=== PATIENT | male | born 1970 | race Caucasian/White ===

== ENCOUNTER → 2017-12-26 14:01 | Outpatient (CLI) | payer MEDICAID, SELFPAY ==
[2017-12-26 15:43] LABS: Absolute Lymphocyte Count 0.77 X10^3/ul (0.83-4.51); Absolute Neutrophil Count 3.5 X10^3/uL (2.0-7.7); Basophil# 0.03 X10^3/uL; Basophil% 0.6 % (0-1); Eosinophil# 0.07 X10^3/uL; Eosinophils% 1.4 % (0-5); Hemoglobin 10.3 g/dl (13.0-16.5); Lymphocyte # 0.77 X10^3/ul (4.0); Lymphocyte % 15.9 % (19-41); Mean Corp Hgb Conc 30.3 g/gl (32-36); Mean Corpuscular Hgb 26.5 pg (27.0-32.0); Mean Corpuscular Volume 87.4 fL (80-94); Mean Platelet Vol. 10.6 fl (6.2-12.0); Monocyte# 0.47 X10^3/uL; Monocyte% 9.7 % (0-10); Neutrophil # 3.47 X10^3/uL (2.7-7.7); Platelet Count 91 K/mm3 (150-450); RBC Distribution Width CV 17.7 % (11.6-14.6); RBC Distribution Width SD 55.9 fl (35.1-43.9); Red Blood Count 3.89 M/mm3 (4.6-6.2); White Blood Count 4.8 K/mm3 (4.4-11.0)
[2017-12-26 15:54] LABS: POSITIVE COUNT NO; POSITIVE DIFFERENTIAL NO; POSITIVE MORPHOLOGY NO
[2017-12-26 16:06] LABS: ALB/GLOB Ratio 0.8 RATIO (0.9-2.4); AST(SGOT) 173 U/L (15-37); Alanine Aminotransfer ALT/SGPT 64 U/L (16-61); Albumin, Serum 3.4 g/dL (3.2-5.0); Alkaline Phosphatase 185 U/L (45-117); Anion Gap 10 (5-15); BUN 8 mg/dL (7-18); BUN/Creat Ratio 9.3 RATIO (10-20); Calcium,Total 8.2 mg/dL (8.5-10.1); Chloride 106 mmol/L (98-107); Creatinine, Serum 0.86 mg/dL (0.70-1.30); EST Glomerular Filtration Rate 100 mL/min (>60); Est Glom Filt Rate - Afr Amer 121 mL/min (>60); Globulin 4.3 g/dL (2.2-4.2); Glucose 163 mg/dL (74-106); Magnesium 1.9 mg/dL (1.6-2.6); Potassium 3.5 mmol/L (3.5-5.1); Protein, Total 7.7 g/dL (6.4-8.2); Sodium Level 143 mmol/L (136-145)
== END ==
PROVIDERS: Family Provider Family Medicine; PCP Family Medicine; Visit Provider Family Medicine
DX: F10.239 Alcohol dependence with withdrawal, unspecified (principal)
CPT/HCPCS: 36415; 80053; 83735; 85025

== ENCOUNTER → 2018-01-27 10:15 | Outpatient (CLI) | payer MEDICAID, SELFPAY ==
[2018-01-27 12:50] LABS: ALB/GLOB Ratio 0.9 RATIO (0.9-2.4); AST(SGOT) 124 U/L (15-37); Alanine Aminotransfer ALT/SGPT 42 U/L (16-61); Albumin, Serum 3.5 g/dL (3.2-5.0); Alkaline Phosphatase 146 U/L (45-117); Anion Gap 8 (5-15); BUN 10 mg/dL (7-18); Calcium,Total 8.7 mg/dL (8.5-10.1); Chloride 110 mmol/L (98-107); Creatinine, Serum 0.91 mg/dL (0.70-1.30); EST Glomerular Filtration Rate 94 mL/min (>60); Est Glom Filt Rate - Afr Amer 114 mL/min (>60); Glucose 123 mg/dL (74-106); Potassium 4.4 mmol/L (3.5-5.1); Protein, Total 7.5 g/dL (6.4-8.2); Sodium Level 142 mmol/L (136-145)
== END ==
PROVIDERS: Family Provider Family Medicine; PCP Family Medicine; Visit Provider Family Medicine
DX: N52.9 Male erectile dysfunction, unspecified (principal); F10.239 Alcohol dependence with withdrawal, unspecified
CPT/HCPCS: 36415; 80053; 84403

== ENCOUNTER 2019-07-28 12:16 | Emergency (ER) | payer MEDICAID, SELFPAY ==
[2019-07-28 12:18] VITALS: BP 156/95; PULSE 80; RESP 16; TEMP 36.6; O2SAT 96; BMI 26.4
--- NOTE | 2019-07-28 13:00 | ED.DCSUM_ITS ---
History of Present Illness Chief Complaint: Substance Abuse Detail of Chief Complaint: Alcohol addiction Informant: Patient, Family - Sister brought him to the emergency department Onset: Days - Patient recently in detox program for alcoholism. He presented to [facility] from [place] for . He began drinking. Context: Sudden Onset Timing: Continuous Quality: Alcoholism Location: Family Current Severity: Mild Maximum Severity: Moderate Worsened by: Anxiety and alcohol Relieved by: Alcohol Associated Symptoms: Anxiety, nausea uneasiness Narrative: This 51-year-old male with no history of alcoholism. He was in a program. He presents to [facility] to attend family . He began drinking. His last drink was earlier this morning. He had several drinks since midnight. He is concerned he will have a withdrawal seizure, which has had in the past if he drives back to [place]. Patient's sister brought him to the emerge from states she will be willing to drive him. Patient was informed that I will be glad to treat him if he has a ride home to prevent him from going through withdrawal and his anxiety. He has no other complaints. Prior similar symptoms: Yes Recent Illness/Hospitalization: Yes - Past Medical History (1) Alcohol addiction Status: Acute Past Medical History - Allergies and Home Meds Allergies/Adverse Reactions: Allergies No Known Allergies Allergy (Verified 07/28/19 12:23) Primary Care Physician: Abdiel Busch MD [STAFF PHYSICIAN] - Prior records reviewed: No - No records from review since he is from [place] Past Medical History: None Surgical History: no surgical history Lives: Spouse/ Significant Other Smoking Status: Current every day smoker Alcohol: Heavy Drugs: None Review of Systems General: Reports: Malaise. Denies: Chills, Fever, Sweats Eyes: Denies: Visual changes - bilaterally, Blurred Vision - bilaterally ENT: Denies: Rhinorrhea, Sore throat Cardiovascular: Denies: Chest pain, Palpitations Respiratory: Denies: Dyspnea, Cough, Sputum Gastrointestinal: Reports: Nausea. Denies: Vomiting, Diarrhea Musculoskeletal: Denies: Myalgias, Arthralgias, Neck pain, Back pain Neurological: Denies: Weakness, Parasthesia, Numbness Psych: Reports: Anxiety Physical Exam Vital Signs/Narrative: Vital Signs Temp Pulse Resp BP Pulse Ox 07/28/19 12:18 97.8 F 80 16 156/95 H 96 Inital Vital Signs reviewed: Yes General: Well nourished, Well developed, No Acute Distress Head: Normocephalic, Atraumatic Eyes: Perrl, EOMI. Negative for: Pale conjunctiva, Scleral icterus ENT: Moist mucous membranes, No rhinorrhea Neck: Supple, Nontender Cardiovascular: Regular rate, Regular rhythm, No murmurs, Normal S1, Normal S2 Respiratory: No distress, CTA bilaterally, Chest nontender Abdomen: Soft, Nontender Neurological: Alert, Oriented x3, Cranial nerves II-XII grossly intact, Normal Strength, Normal Sensation Psychological: - - Patient is anxious. Diagnostic/Tx/Re-eval - Medical Decision Making Sister is willing to drive him home he will receive 7.2 mg of phenobarbital and discharged to custody of his sister. They understand this causes drowsiness and he cannot drive home. ED Disposition - Plan for ED Patient: Disposition: Home or Assisted Living Diagnosis: Anxiety in acute stress reaction, Alcoholism /alcohol abuse Instructions: Anxiety Reaction Referrals: Abdiel Busch MD [STAFF PHYSICIAN] -
[2019-07-28 13:36] VITALS: BP 158/99; PULSE 78; RESP 166; O2SAT 95
== END 2019-07-28 13:41 | disposition home or self-care (01) ==
PROVIDERS: Emergency Provider Emergency Medicine
DX: F41.1 Generalized anxiety disorder (principal); F43.0 Acute stress reaction; F10.20 Alcohol dependence, uncomplicated; Y90.9 Presence of alcohol in blood, level not specified; F17.200 Nicotine dependence, unspecified, uncomplicated
CPT/HCPCS: 99283

== ENCOUNTER 2019-07-29 09:41 | Inpatient (IN) | payer MEDICAID, SELFPAY ==
[2019-07-28 12:18] VITALS: BMI 26.4
[2019-07-29] VITALS (10 sets, daily range): BP systolic 145–166; BP diastolic 88–118; PULSE 72–109; RESP 14–21; TEMP 36.5–37; O2SAT 93–99; BMI 26.4; BMI 26.9
--- NOTE | 2019-07-29 10:29 | ED.RN ---
sister arrived. reports that she did see pt seizing and he stopped breathing that is why she called the squad. reports pt has had confusion and is hard to manage at home while going through detox. sister is at bedside with pt now and dr humphries as well. nurse марина rn updated regarding this info
[2019-07-29] MEDS: LORazepam 2 MG/ML Syringe 1 MG IV (10:50)
[2019-07-29 11:37] LABS: Absolute Neutrophil Count 6.2 X10^3/uL (2.0-7.7); Basophil# 0.04 X10^3/uL; Basophil% 0.6 % (0-1); Eosinophil# 0.04 X10^3/uL; Eosinophils% 0.6 % (0-5); Hematocrit 44.6 % (40-54); Hemoglobin 15.5 g/dL (13.0-16.5); Lymphocyte % 5.5 % (19-41); Mean Corp Hgb Conc 34.8 g/dL (32-36); Mean Corpuscular Hgb 32.2 pg (27.0-32.0); Mean Corpuscular Volume 92.7 fL (80-94); Mean Platelet Vol. 11.4 fl (6.2-12.0); Monocyte# 0.52 X10^3/uL; Monocyte% 7.2 % (0-10); NRBC Flagged by Analyzer 0 % (0-5); Neutrophil % 85.5 % (47-70); POSITIVE COUNT YES; POSITIVE DIFFERENTIAL YES; Platelet Count 76 K/mm3 (150-450); RBC Distribution Width CV 15.9 % (11.6-14.6); RBC Distribution Width SD 54.6 fl (35.1-43.9); Red Blood Count 4.81 M/mm3 (4.6-6.2); White Blood Count 7.2 K/mm3 (4.4-11.0)
[2019-07-29 11:39] LABS: Differential Indicated SCAN CRITERIA MET
[2019-07-29 11:54] LABS: AST(SGOT) 108 U/L (15-37); Alanine Aminotransfer ALT/SGPT 51 U/L (16-61); Albumin, Serum 3.9 g/dL (3.2-5.0); Alkaline Phosphatase 222 U/L (45-117); Anion Gap 12 (5-15); BUN 13 mg/dL (7-18); BUN/Creat Ratio 18.6 RATIO (10-20); Bilirubin, Direct 1.13 mg/dL (0.00-0.30); Calcium,Total 8.9 mg/dL (8.5-10.1); Chloride 104 mmol/L (98-107); EST Glomerular Filtration Rate 126 mL/min (>60); Est Glom Filt Rate - Afr Amer 153 mL/min (>60); Estimated Creatinine Clearance 132.97 ml/min; Glucose 141 mg/dL (74-106); Potassium 3.7 mmol/L (3.5-5.1); Protein, Total 7.9 g/dL (6.4-8.2); Sodium Level 139 mmol/L (136-145)
[2019-07-29 11:56] LABS: Amphetamine Urine VISTA NEGATIVE (<1000 ng/mL); Barbiturate Urine VISTA POSITIVE (< 200 ng/mL); Benzodiazepine Urine VISTA NEGATIVE (< 200 ng/mL); Cocaine Urine VISTA NEGATIVE (< 300 ng/mL); Ecstacy Urine VISTA NEGATIVE (< 500 ng/mL); Methadone Urine VISTA NEGATIVE (< 300 ng/mL); PCP Urine VISTA NEGATIVE (< 25 ng/mL); THC Urine VISTA NEGATIVE (< 50 ng/mL); Vista UDS pH Range 7
[2019-07-29 12:06] LABS: Alcohol, Blood (Medical)-Serum < 3.0 mg/dL
--- NOTE | 2019-07-29 12:52 | ED.VISSUMM ---
- ER Visit Summary Date of Service: 07/29/19 Chief Complaint: Seizures History of Present Illness: The patient is a 49 M with 2 seizures today. His sister found him postictal, but on arrival, he is alert and oriented and able to provide history. He says he has a history of alcohol abuse, withdrawal, and seizures. He is visiting the area from [place] and was binge drinking. His last alcohol use was 3 days ago. He was seen in the ED yesterday. He did not want to be admitted. He was treated with phenobarbital and he plan to go back to [place]. He says he is planning to go back in a few days. He is not currently on Ativan or benzos. Denies any other drug use. Physical Examination: Afebrile and vital signs unremarkable except blood pressure 158/118. Patient is diaphoretic and appears anxious. Otherwise his exam is unremarkable. Test Results: Platelets 76. Total bilirubin 3, direct bilirubin 1.13, alkaline phosphatase 222, AST 108. Emergency Department Course and Treatment: Patient was treated with Ativan and monitored. He had seizure precautions. His laboratory studies reflected his hepatic disease from underlying alcohol use. On reevaluation, patient is stable. He is interested in inpatient care for his alcohol withdrawal. I contacted the hospitalist who will admit to PCU for further care. Treatment Plan: As above Disposition: Admission Impression: 1. Alcohol withdrawal 2. Seizure This note was generated with [employer] dictation software. It may contain incorrect words, spelling, and punctuation that were not noted in review of the chart prior to signing ED Disposition - Plan for ED Patient: Referrals: Care Physician,No Primary [Primary Care Provider] -
--- NOTE | 2019-07-29 13:17 | HP.PCM_ITS ---
History of Present Illness Date of Admission: 07/29/19 Chief Complaint: Seizures, alcohol withdrawal The patient is a 49 year old M with past medical history of alcohol dependence and diabetes. He was admitted through the ED on 07/29/2018 with a complaint of seizures from alcohol withdrawal. Patient states he drinks about a pint of vodka daily and thinks that his last drink may have been yesterday morning. Patient came into the ED yesterday because he felt he was withdrawing from alcohol and so wanted some benzodiazepines to help him go through the withdrawal process. This morning, he was found by his sister having generalized tonic- clonic seizures which lasted for a few minutes. He had a second seizure a few minutes later which also lasted for a few minutes and was associated by postictal drowsiness but had no associated urinary or fecal incontinence. Patient sees he has had seizures like this in the past from alcohol withdrawal. He was therefore brought into the ED by the squad. Patient states he has been through detox in the past but admits that his refusal to fully accept the fact t hat he is in alcohol hinders his ability to fully recover from alcohol dependence. Lives in [facility] and was visiting family in [facility]. In the ED, vitals were significant for elevated blood pressure of 160/102 respiratory rate was 21. Chemistry showed total bilirubin of 3 and direct bilirubin of 1.13 with AST of 108. Urine tox was positive for barbiturates and alcohol level was less than 3. He has been admitted to be managed for seizures due to acute alcohol withdrawal. [] Past Medical History Allergies No Known Allergies Allergy (Verified 07/29/19 09:48) Home Medications: Ambulatory Orders Medication Instructions Recorded Metformin HCl 500 mg PO BID 07/29/19 Multivit with Iron,Minerals 1 ea PO DAILY 07/29/19 [Complete Senior] Sertraline HCl [Zoloft] 50 mg PO DAILY 07/29/19 Surgical History: no surgical history Lives: Spouse/ Significant Other Smoking Status: Current every day smoker Tobacco Use: Non-smoker Alcohol: Heavy Drugs: None - *Family History Maternal History Items: - - unknown as he was adopted Review of Systems Constitutional: Reports: Chills, Malaise, Weakness, Fatigue. Denies: Anorexia, Fever, Night Sweats Eyes: Denies: Blurred vision HEENT: Denies: Head Aches, Sinus Congestion, Sinus Drainage Cardiovascular: Denies: Chest Pain, Chest Pressure, Chest Tightness, Light Headedness, Orthopnea, Palpitations Respiratory: Denies: Cough, Shortness of Breath, Shortness of breath at rest, Shortness of breath upon exertion, Sputum production Gastrointestinal: Denies: Abdominal Pain, Nausea, Vomiting Genitourinary: Denies: Dysuria Musculoskeletal: Denies: Joint Pain, Joint Tenderness Skin: Denies: Rash, Wounds Neurological: Reports: Tremor, Seizures Psychiatric: Denies: Anxiety, Depression, Homicidal Ideations, Suicidal Ideations Hematologic/ Lymphatic: Denies: Easy Bruising, Easy Bleeding VTE Information - Inpt Only VTE Present on Admission: No VTE Pharm Prophylaxis ordered?: Yes - Physical Exam Vitals/I&O's: Vital Signs Temp Pulse Resp BP Pulse Ox 97.7 F L 96 21 H 164/88 H 96 07/29/19 09:45 07/29/19 10:47 07/29/19 10:47 07/29/19 12:58 07/29/19 12:05 Oxygen Delivery Method Room Air Weight: 190 lb Body Mass Index (BMI) 26.4 General: Alert, Oriented x3, Cooperative, No apparent distress HEENT: Atraumatic, PERRLA, EOMI, Normocephalic Oral: Dry Mucosa Neck: Supple, No JVD, Negative Carotid Bruits Lungs: Clear to auscultation, Normal air movement, No rhonchi, No wheeze, No rales Cardiovascular: Regular rate, Regular Rhythm, Normal S1, Normal S2, No murmurs Abdomen: Bowel Sounds Present, Soft, Non Tender, Non-Distended, No Hepato- splenomegaly Extremities: No clubbing, No cyanosis, No edema, Capillary Refill Less than 3 Seconds Skin: No rashes, No breakdown Musculoskeletal: No Tenderness to Palpation of Joints or Extremities Lymphatic: No Cervical, Supraclavicular, or Inguinal Adenopathy Neurological: Cranial nerves II-XII grossly intact, Neuro grossly intact, Motor Exam 5/5 strength throughout, - - tremors of upper extremities Psych/Mental Status: Depressed, Alert and oriented to time, place, person, mood and affect Laboratory Results 07/29/19 11:17: Urine Opiates Screen NEGATIVE, Urine Methadone Screen NEGATIVE, Ur Barbiturates Screen POSITIVE H, Ur Phencyclidine Scrn NEGATIVE, Ur Amphetamines Screen NEGATIVE, U Methamphetamin-MDMA NEGATIVE, U Benzodiazepines Scrn NEGATIVE, Urine Cocaine Screen NEGATIVE, U Cannabinoids Screen NEGATIVE, Ur Drug Screen Comment 07/29/19 11:27: WBC 7.2, RBC 4.81, Hgb 15.5, Hct 44.6, MCV 92.7, MCH 32.2 H, MCHC 34.8, RDW Std Deviation 54.6 H, RDW Coeff of North 15.9 H, Plt Count 76 L, MPV 11.4, Immature Gran % (Auto) 0.600, Neut % (Auto) 85.5 H, Lymph % (Auto) 5.5 L, [place] % (Auto) 7.2, Eos % (Auto) 0.6, Baso % (Auto) 0.6, Absolute Neuts (auto) 6.2, Absolute Lymphs (auto) 0.40 L, Nucleated RBC % 0 07/29/19 11:27: Sodium 139, Potassium 3.7, Chloride 104, Carbon Dioxide 23.0, Anion Gap 12, BUN 13, Creatinine 0.70, Estim Creat Clear Calc 132.97, Est GFR (MDRD) Af Amer 153, Est GFR (MDRD) Non-Af 126, BUN/Creatinine Ratio 18.6, Glucose 141 H, Calcium 8.9, Total Bilirubin 3.00 H, Direct Bilirubin 1.13 H, AST 108 H, ALT 51, Alkaline Phosphatase 222 H, Total Protein 7.9, Albumin 3.9, Globulin 4.0 07/29/19 11:27: Ethyl Alcohol < 3.0 Assessment/Plan All Active Problems Alcohol addiction (Acute) 49-year-old male admitted with seizures due to alcohol withdrawal. 1. Seizures due to alcohol withdrawal * had 2 generalized tonic clonic seizures from alcohol withdrawal * last drink was yesterday morning * urine tox positive for barbiturates * admit to PCU * seizure and fall precautions * start alcohol withdrawal protocol with librium * monitor CIWA score * thiamine, multivites and folic acid daily * * 2. Acute alcohol withdrawal: as under 1. 3. Thrombocytopenia: likely chronic, from alcohol abuse. Platelets are 76 today. He does say he has a history of low platelets. Will monitor. 4. Elevated liver enzymes: * total bilirubin is 3, with direct bilirubin of 1.13 and AST of 108. * ALT is 51. Likely due to chronic alcohol abuse. * WIll monitor * 5. Type 2 diabetes mellitus: * on metformin. ISS. * Accuchecks ACHS DVT prophylaxis: SCDs o/a of low platelets * Code Visit Inpatient E&M: 96912 Init Hosp L3
[2019-07-29 13:49] LABS: Magnesium 2.5 mg/dL (1.6-2.6)
[2019-07-29] MEDS: chlordiazePOXIDE 25 MG Capsule PO ×2 (14:43→19:11)
[2019-07-29] MEDS: Sertraline 50 MG Tablet PO (14:43)
[2019-07-29 17:16] LABS: Bedside Glucose 92 mg/dL (70-110)
[2019-07-29] MEDS: metFORMIN HCl 500 MG Tablet PO (17:46)
[2019-07-29] MEDS: Acetaminophen 325 MG Tablet 650 MG PO (17:46)
[2019-07-29] MEDS: FLUoxetine 20 MG Capsule PO (20:39)
[2019-07-29 23:01] LABS: Bedside Glucose 94 mg/dL (70-110)
[2019-07-30] VITALS (10 sets, daily range): BP systolic 125–146; BP diastolic 81–97; PULSE 65–90; RESP 16–18; TEMP 36.7–36.9; O2SAT 97–100
[2019-07-30] MEDS: chlordiazePOXIDE 25 MG Capsule PO ×4 (01:48→23:25)
[2019-07-30 05:59] LABS: Absolute Lymphocyte Count 0.96 X10^3/uL (0.83-4.51); Absolute Neutrophil Count 3.4 X10^3/uL (2.0-7.7); Basophil# 0.05 X10^3/uL; Eosinophil# 0.19 X10^3/uL; Eosinophils% 3.7 % (0-5); Hematocrit 43.7 % (40-54); Hemoglobin 14.9 g/dL (13.0-16.5); Lymphocyte # 0.96 X10^3/ul (4.0); Lymphocyte % 18.6 % (19-41); Mean Corp Hgb Conc 34.1 g/dL (32-36); Mean Corpuscular Hgb 32.5 pg (27.0-32.0); Mean Corpuscular Volume 95.2 fL (80-94); Mean Platelet Vol. 11.4 fl (6.2-12.0); Monocyte% 9.7 % (0-10); NRBC Flagged by Analyzer 0 % (0-5); Neutrophil # 3.42 X10^3/uL (2.7-7.7); Neutrophil % 66.4 % (47-70); POSITIVE COUNT YES; Platelet Count 67 K/mm3 (150-450); RBC Distribution Width CV 16.5 % (11.6-14.6); Red Blood Count 4.59 M/mm3 (4.6-6.2); White Blood Count 5.2 K/mm3 (4.4-11.0)
[2019-07-30 06:25] LABS: Anion Gap 11 (5-15); BUN 13 mg/dL (7-18); BUN/Creat Ratio 18.3 RATIO (10-20); Calcium,Total 8.8 mg/dL (8.5-10.1); Chloride 101 mmol/L (98-107); Creatinine, Serum 0.71 mg/dL (0.70-1.30); EST Glomerular Filtration Rate 124 mL/min (>60); Est Glom Filt Rate - Afr Amer 150 mL/min (>60); Estimated Creatinine Clearance 127.09 ml/min; Glucose 100 mg/dL (74-106); Magnesium 2.1 mg/dL (1.6-2.6); Potassium 3.2 mmol/L (3.5-5.1); Sodium Level 137 mmol/L (136-145)
[2019-07-30 07:11] LABS: Bedside Glucose 87 mg/dL (70-110)
[2019-07-30] MEDS: Folic Acid 1 MG Tablet PO (09:04)
[2019-07-30] MEDS: FLUoxetine 20 MG Capsule PO (09:04)
[2019-07-30] MEDS: metFORMIN HCl 500 MG Tablet PO ×2 (09:04→17:03)
[2019-07-30] MEDS: Thiamine Hydrochloride 100 MG Tablet PO (09:05)
[2019-07-30] MEDS: Multivitamins,Therapeutic Tablet 1 TABLET PO (09:05)
--- NOTE | 2019-07-30 10:42 | CASEMGMT ---
MCKENNA met with patient, introduced self and role at [facility]. Patient lives in [place]. He was in town for his mom's . His sister lives in [place]. He was staying with her and dealing poorly with his grief. He said he and his sister were both adopted and now with both of their parents gone it is like being orphans again. He said he and his sister would talk all evening and then he would go back to where he was staying and get drunk. He has been here for 3 weeks and the plan was to be here just for the . He is active with outpatient treatment for his alcoholism in [place]. He plans on continuing with this and attending AA meetings. He probably won't leave to go back to [place] until Tuesday as traffic causes his anxiety to go really high. MCKENNA offered to give him a list of AA meetings in [place] that he could attend until he leaves. He declined stating he has been to some here, but they are too advent for him. MCKENNA asked if there are any counseling agencies that he might be able go to for grief counseling. He said he thinks he will be fine. He has a support system in [place], friends and a girlfriend. He thanked MCKENNA for checking in with him. Plan: return to [place] over the weekend, resume his outpatient therapy for alcoholism, and attend AA meetings. Rianna JOHNSON
--- NOTE | 2019-07-30 10:59 | PCM.PN.HOSP ---
Subjective: Feeling a little bit better than yesterday, thinks that the Librium and Ativan has been helping Vitals/I&O's: Vital Signs Temp Pulse Resp BP Pulse Ox 98.4 F 82 16 143/97 H 100 07/30/19 10:17 07/30/19 10:17 07/30/19 10:17 07/30/19 10:17 07/30/19 10:17 Oxygen Delivery Method Room Air Weight: 192 lb 7.417 oz Body Mass Index (BMI) 26.9 Intake and Output for Last 24 Hours 07/28/19 07/29/19 07/30/19 23:59 23:59 23:59 Intake Total 240 / 240 Balance 240 / 240 General: Alert, Oriented x3, Cooperative, No apparent distress, - - Slight tremor HEENT: Atraumatic, PERRLA, EOMI Oral: Dry Mucosa Neck: Supple, No JVD Lungs: Clear to auscultation, Normal air movement, No rhonchi, No wheeze, No rales, Diminished Cardiovascular: Regular rate, Regular Rhythm, Normal S1, Normal S2, No murmurs Abdomen: Soft, Non Tender, Non-Distended, No Hepato-splenomegaly Extremities: No edema, Capillary Refill Less than 3 Seconds Skin: No rashes, No breakdown Neurological: Neuro grossly intact, Sensory exam intact to light touch and pain Psych/Mental Status: Anxious, Restless Laboratory Results 07/29/19 11:17: Urine Opiates Screen NEGATIVE, Urine Methadone Screen NEGATIVE, Ur Barbiturates Screen POSITIVE H, Ur Phencyclidine Scrn NEGATIVE, Ur Amphetamines Screen NEGATIVE, U Methamphetamin-MDMA NEGATIVE, U Benzodiazepines Scrn NEGATIVE, Urine Cocaine Screen NEGATIVE, U Cannabinoids Screen NEGATIVE, Ur Drug Screen Comment 07/29/19 11:27: WBC 7.2, RBC 4.81, Hgb 15.5, Hct 44.6, MCV 92.7, MCH 32.2 H, MCHC 34.8, RDW Std Deviation 54.6 H, RDW Coeff of North 15.9 H, Plt Count 76 L, MPV 11.4, Immature Gran % (Auto) 0.600, Neut % (Auto) 85.5 H, Lymph % (Auto) 5.5 L, [place] % (Auto) 7.2, Eos % (Auto) 0.6, Baso % (Auto) 0.6, Absolute Neuts (auto) 6.2, Absolute Lymphs (auto) 0.40 L, Nucleated RBC % 0 07/29/19 11:27: Sodium 139, Potassium 3.7, Chloride 104, Carbon Dioxide 23.0, Anion Gap 12, BUN 13, Creatinine 0.70, Estim Creat Clear Calc 132.97, Est GFR (MDRD) Af Amer 153, Est GFR (MDRD) Non-Af 126, BUN/Creatinine Ratio 18.6, Glucose 141 H, Calcium 8.9, Total Bilirubin 3.00 H, Direct Bilirubin 1.13 H, AST 108 H, ALT 51, Alkaline Phosphatase 222 H, Total Protein 7.9, Albumin 3.9, Globulin 4.0 07/29/19 11:27: Ethyl Alcohol < 3.0 07/29/19 11:27: Magnesium 2.5 07/29/19 16:53: POC Glucose 92 07/29/19 22:30: POC Glucose 94 07/30/19 05:46: WBC 5.2, RBC 4.59 L, Hgb 14.9, Hct 43.7, MCV 95.2 H, MCH 32.5 H, MCHC 34.1, RDW Std Deviation 58.0 H, RDW Coeff of North 16.5 H, Plt Count 67 L, MPV 11.4, Immature Gran % (Auto) 0.600, Neut % (Auto) 66.4, Lymph % (Auto) 18.6 L, [place] % (Auto) 9.7, Eos % (Auto) 3.7, Baso % (Auto) 1.0, Absolute Neuts (auto) 3.4, Absolute Lymphs (auto) 0.96, Nucleated RBC % 0 07/30/19 05:46: Sodium 137, Potassium 3.2 L, Chloride 101, Carbon Dioxide 25.0, Anion Gap 11, BUN 13, Creatinine 0.71, Estim Creat Clear Calc 127.09, Est GFR (MDRD) Af Amer 150, Est GFR (MDRD) Non-Af 124, BUN/Creatinine Ratio 18.3, Glucose 100, Calcium 8.8, Magnesium 2.1 07/30/19 06:44: POC Glucose 87 Current Medications Acetaminophen (Tylenol) 650 mg PO Q6H PRN PRN PRN Reason: Pain or Fever Last Admin: 11/24/19 17:46 Dose: 650 mg Documented by: Chlordiazepoxide (Librium) 50 mg PO Q8H [facility]; Taper Stop: 08/01/19 15:44 Last Admin: 07/30/19 06:45 Dose: 50 mg Documented by: Dextrose (D50w Syringe) 0 gm IV X1 PRN; Protocol PRN Reason: Hypoglycemia Dicyclomine HCl (Bentyl) 20 mg PO Q6H PRN PRN PRN Reason: abdominal discomfort Fluoxetine HCl (Prozac) 20 mg PO DAILY [facility] Last Admin: 07/30/19 09:04 Dose: 20 mg Documented by: [facility] ([facility]) [facility] Stop: 08/01/19 08:01 Last Admin: 07/30/19 09:04 Dose: 1 mg Documented by: Glucagon () 1 mg IM .X1 PRN PRN Reason: Hypoglycemia Hydroxyzine Pamoate (Vistaril Pamoate Capsule) 50 mg PO Q6H PRN PRN PRN Reason: Mild Anxiety (score 1/3) Insulin Human Lispro (Humalog Kwikpen (Bkc)) 0 unit [facility]; Protocol Last Admin: 07/30/19 06:46 Dose: Not Given Documented by: Lorazepam (Ativan) 2 mg PO Q2H PRN PRN; Protocol PRN Reason: CIWA score > 8 but <15 Lorazepam (Ativan) 2 mg PO UD PRN; Protocol PRN Reason: CIWA score >/=15. Lorazepam (Ativan) 2 mg IV Q2H PRN PRN; Protocol PRN Reason: CIWA score > 8 but <15 Lorazepam (Ativan) 2 mg IV UD PRN; Protocol PRN Reason: CIWA score >/=15. Metformin [facility]ophage) [facility] Last Admin: 07/30/19 09:04 Dose: 500 mg Documented by: Methocarbamol (Methocarbamol) 750 mg PO Q6H PRN PRN PRN Reason: Muscle Aches Multivitamins (Multivitamin) [facility] Last Admin: 07/30/19 09:05 Dose: 1 tablet Documented by: Ondansetron HCl (Zofran) 4 mg IV Q8H PRN PRN PRN Reason: NAUSEA/VOMITING Sodium Chloride () 10 - 40 ml IV UD PRN PRN Reason: SALINE FLUSH Thiamine HCl (Vitamin B1) 100 mg PO DAILYCM [facility] Stop: 08/01/19 08:01 Last Admin: 07/30/19 09:05 Dose: 100 mg Documented by: STROKE Vital Signs/Narrative: Vital Signs Temp Pulse Resp BP Pulse Ox 07/30/19 10:17 98.4 F 82 16 143/97 H 100 07/30/19 09:02 98.1 F 74 17 125/81 H 97 07/30/19 07:20 65 Medical Necessity - Tobacco Use Smoking Status: Current every day smoker Tobacco Use: Non-smoker Assessment/Plan All Active Problems Alcohol addiction (Acute) 1. Acute alcohol withdrawal/thrombocytopenia/elevated LFTs -He has had alcohol withdrawal seizures in the past -Continue with Librium taper as well as Ativan -Continue with alcohol withdrawal protocol -thrombocytopenia is chronic from his alcohol use 2. DM 2 -Continue with his metformin, will be very cautious if any testing is necessary -Also sliding scale insulin is available if needed, continue with Accu-Cheks 3. Anxiety/depression -He will need mental health as an outpatient as this is a significant comorbidity with his drinking -He with Prozac for now DVT: SCDs Code Visit Inpatient E&M: 53999 Subs Hosp L2
[2019-07-30 11:25] LABS: Bedside Glucose 92 mg/dL (70-110)
[2019-07-30 16:41] LABS: Bedside Glucose 215 mg/dL (70-110)
[2019-07-30] MEDS: Insulin Lispro 100 UNIT/ML INSULN.PEN SC (17:03)
[2019-07-30 22:21] LABS: Bedside Glucose 143 mg/dL (70-110)
[2019-07-31] VITALS (10 sets, daily range): BP systolic 121–133; BP diastolic 78–93; PULSE 62–86; RESP 14–18; TEMP 36.3–36.8; O2SAT 96–98
[2019-07-31] MEDS: chlordiazePOXIDE 25 MG Capsule PO ×2 (06:52→14:47)
[2019-07-31 06:56] LABS: Bedside Glucose 121 mg/dL (70-110)
[2019-07-31] MEDS: Thiamine Hydrochloride 100 MG Tablet PO (09:41)
[2019-07-31] MEDS: Multivitamins,Therapeutic Tablet 1 TABLET PO (09:41)
[2019-07-31] MEDS: Folic Acid 1 MG Tablet PO (09:41)
[2019-07-31] MEDS: metFORMIN HCl 500 MG Tablet PO ×2 (09:41→16:47)
[2019-07-31] MEDS: FLUoxetine 20 MG Capsule PO (09:41)
--- NOTE | 2019-07-31 10:02 | PN_ITS ---
Subjective: Resting comfortably, CIWA a 4 this am Vitals/I&O's: Vital Signs Temp Pulse Resp BP Pulse Ox 98.2 F 79 14 121/87 H 97 07/31/19 09:43 07/31/19 09:43 07/31/19 09:43 07/31/19 09:43 07/31/19 09:43 Oxygen Delivery Method Room Air Weight: 192 lb 7.417 oz Body Mass Index (BMI) 26.9 Intake and Output for Last 24 Hours 07/29/19 07/30/19 07/31/19 23:59 23:59 23:59 Intake Total 240 / 240 1625 / 1625 Balance 240 / 240 1625 / 1625 General: Alert, Oriented x3, Cooperative, No apparent distress, - - Slight tremor HEENT: Atraumatic, PERRLA, EOMI Oral: Dry Mucosa Neck: Supple, No JVD Lungs: Clear to auscultation, Normal air movement, No rhonchi, No wheeze, No rales, Diminished Cardiovascular: Regular rate, Regular Rhythm, Normal S1, Normal S2, No murmurs Abdomen: Soft, Non Tender, Non-Distended, No Hepato-splenomegaly Extremities: No edema, Capillary Refill Less than 3 Seconds Skin: No rashes, No breakdown Neurological: Neuro grossly intact, Sensory exam intact to light touch and pain Psych/Mental Status: Anxious, Restless Laboratory Results 07/30/19 11:20: POC Glucose 92 07/30/19 16:33: POC Glucose 215 H 07/30/19 22:12: POC Glucose 143 H 07/31/19 06:51: POC Glucose 121 H Current Medications Acetaminophen (Tylenol) 650 mg PO Q6H PRN PRN PRN Reason: Pain or Fever Last Admin: 07/29/19 17:46 Dose: 650 mg Documented by: Chlordiazepoxide (Librium) 50 mg PO Q8H [facility]; Taper Stop: 08/01/19 15:44 Last Admin: 07/31/19 06:52 Dose: 50 mg Documented by: Dextrose (D50w Syringe) 0 gm IV X1 PRN; Protocol PRN Reason: Hypoglycemia Dicyclomine HCl (Bentyl) 20 mg PO Q6H PRN PRN PRN Reason: abdominal discomfort Fluoxetine HCl (Prozac) 20 mg PO DAILY [facility] Last Admin: 07/31/19 09:41 Dose: 20 mg Documented by: Folic [facility] ([facility]) [facility] Stop: 08/01/19 08:01 Last Admin: 07/31/19 09:41 Dose: 1 mg Documented by: Glucagon () 1 mg IM .X1 PRN PRN Reason: Hypoglycemia Hydroxyzine Pamoate (Vistaril Pamoate Capsule) 50 mg PO Q6H PRN PRN PRN Reason: Mild Anxiety (score 1/3) Insulin Human Lispro (Humalog Kwikpen (Bkc)) 0 unit [facility]; Protocol Last Admin: 07/31/19 06:52 Dose: Not Given Documented by: Lorazepam (Ativan) 2 mg PO Q2H PRN PRN; Protocol PRN Reason: CIWA score > 8 but <15 Lorazepam (Ativan) 2 mg PO UD PRN; Protocol PRN Reason: CIWA score >/=15. Lorazepam (Ativan) 2 mg IV Q2H PRN PRN; Protocol PRN Reason: CIWA score > 8 but <15 Lorazepam (Ativan) 2 mg IV UD PRN; Protocol PRN Reason: CIWA score >/=15. Metformin [facility] (Glucophage) [facility] Last Admin: 07/31/19 09:41 Dose: 500 mg Documented by: Methocarbamol (Methocarbamol) 750 mg PO Q6H PRN PRN PRN Reason: Muscle Aches Multivitamins (Multivitamin) [facility] tablet [facility] Last Admin: 07/31/19 09:41 Dose: 1 tablet Documented by: Ondansetron HCl (Zofran) 4 mg IV Q8H PRN PRN PRN Reason: NAUSEA/VOMITING Sodium Chloride () 10 - 40 ml IV UD PRN PRN Reason: SALINE FLUSH Thiamine HCl (Vitamin B1) [facility] Stop: 08/01/19 08:01 Last Admin: 07/31/19 09:41 Dose: 100 mg Documented by: STROKE Vital Signs/Narrative: Vital Signs Temp Pulse Resp BP Pulse Ox 07/31/19 09:43 98.2 F 79 14 121/87 H 97 07/31/19 09:33 98.2 F 79 14 121/87 H 97 Medical Necessity - Tobacco Use Smoking Status: Current every day smoker Tobacco Use: Non-smoker Assessment/Plan All Active Problems Alcohol addiction (Acute) 1. Acute alcohol withdrawal/thrombocytopenia/elevated LFTs -He has had alcohol withdrawal seizures in the past -Continue with Librium taper as well as Ativan -Continue with alcohol withdrawal protocol -thrombocytopenia is chronic from his alcohol use 2. DM 2 -Continue with his metformin, will be very cautious if any testing is necessary -Also sliding scale insulin is available if needed, continue with Accu-Cheks 3. Anxiety/depression -He will need mental health as an outpatient as this is a significant comorbidity with his drinking -He with Prozac for now DVT: SCDs Code Visit Inpatient E&M: 70648 Subs Hosp L2
[2019-07-31] MEDS: Acetaminophen 325 MG Tablet 650 MG PO (12:47)
[2019-07-31 12:50] LABS: Bedside Glucose 108 mg/dL (70-110)
[2019-07-31] MEDS: Insulin Lispro 100 UNIT/ML INSULN.PEN SC ×2 (16:47→22:13)
[2019-07-31 16:55] LABS: Bedside Glucose 236 mg/dL (70-110)
[2019-07-31] MEDS: 0.9% Saline Lock 10 ML Syringe IV (22:13)
[2019-07-31 22:20] LABS: Bedside Glucose 170 mg/dL (70-110)
[2019-08-01] VITALS: PULSE 74
[2019-08-01 02:43] VITALS: BP 148/91; PULSE 67; RESP 16; TEMP 36.8; O2SAT 96
[2019-08-01] MEDS: chlordiazePOXIDE 25 MG Capsule PO (02:45)
[2019-08-01 03:58] VITALS: PULSE 72
[2019-08-01] MEDS: Insulin Lispro 100 UNIT/ML INSULN.PEN SC (06:38)
[2019-08-01 06:50] LABS: Bedside Glucose 214 mg/dL (70-110)
[2019-08-01 07:28] VITALS: PULSE 70
[2019-08-01 09:10] VITALS: BP 143/86; PULSE 69; RESP 16; TEMP 36.7; O2SAT 97
--- NOTE | 2019-08-01 09:10 | DCINST_ITS ---
You will use the following diet at home:: Regular Your food should be the consistency of: Regular Your liquids should be the consistency of: Regular/Thin Discharge Activity: Return to Normal Activity Call your doctor if you observe: Fever of 101 or Higher, Shortness of breath, Dizziness, Fainting spells, Swelling in the ankles, Chest pain, Increased palpitations (irregular heartbeat) Allergies/Adverse Reactions: Allergies No Known Allergies Allergy (Verified 07/29/19 09:48) Medications to take at Discharge Fluoxetine [Prozac] 20 mg PO DAILY 07/29/19 Folic Acid 0.8 mg PO DAILY@0800 07/29/19 Metformin HCl [Metformin HCl ER] 1,500 mg PO QHS 07/29/19 Naltrexone HCl 50 mg PO DAILY 07/29/19 Primary Care Physician: Care Physician,No Primary [Primary Care Provider] - Please follow up with your Primary Care Physician in: 3-5 days Test Results: Test results from this visit will be discussed in further detail at your follow- up appointment, if applicable. Please Follow Up With: Alcohol Rehab When: CHUCK
--- NOTE | 2019-08-01 09:14 | PCM.DC.SUM ---
Discharge Date and Diagnosis Date of Admission: 07/29/19 Date of Discharge: 08/01/19 Hospital Course and Treatment Imaging Results: None Consults: None Operations: None Procedures: None Summary of Care Provided: Per HPI: The patient is a 49 year old M with past medical history of alcohol dependence and diabetes. He was admitted through the ED on 07/29/2018 with a complaint of seizures from alcohol withdrawal. Patient states he drinks about a pint of vodka daily and thinks that his last drink may have been yesterday morning. Patient came into the ED yesterday because he felt he was withdrawing from alcohol and so wanted some benzodiazepines to help him go through the withdrawal process. This morning, he was found by his sister having generalized tonic-clonic seizures which lasted for a few minutes. He had a second seizure a few minutes later which also lasted for a few minutes and was associated by postictal drowsiness but had no associated urinary or fecal incontinence. Patient sees he has had seizures like this in the past from alcohol withdrawal. He was therefore brought into the ED by the squad. Patient states he has been through detox in the past but admits that his refusal to fully accept the fact that he is in alcohol hinders his ability to fully recover from alcohol dependence. Lives in [facility] and was visiting family in [facility]. In the ED, vitals were significant for elevated blood pressure of 160/102 respiratory rate was 21. Chemistry showed total bilirubin of 3 and direct bilirubin of 1.13 with AST of 108. Urine tox was positive for barbiturates and alcohol level was less than 3. He has been admitted to be managed for seizures due to acute alcohol withdrawal. Hospital Course: 1. Acute alcohol withdrawal/thrombocytopenia/elevated LFTs -He has had alcohol withdrawal seizures in the past -Completed Librium taper -States he wants to quit drinking and will like to go to rehab as an outpatient -thrombocytopenia is chronic from his alcohol use -He will need outpatient monitoring of his LFTs 2. DM 2 -Continue with his metformin, will be very cautious if any testing is necessary -Also sliding scale insulin is available if needed, continue with Accu-Cheks 3. Anxiety/depression -He will need mental health as an outpatient as this is a significant comorbidity with his drinking -Continue with Prozac for now - Physical Exam Vitals/I&O's: Vital Signs Temp Pulse Resp BP Pulse Ox 98.2 F 70 16 148/91 H 96 08/01/19 02:43 08/01/19 07:28 08/01/19 02:43 08/01/19 02:43 08/01/19 02:43 Oxygen Delivery Method Room Air Weight: 192 lb 7.417 oz Body Mass Index (BMI) 26.9 Intake and Output for Last 24 Hours 07/30/19 07/31/19 08/01/19 23:59 23:59 23:59 Intake Total 1625 / 1625 1000 / 1450 650 / 650 Balance 1625 / 1625 1000 / 1450 650 / 650 General: Alert, Oriented x3, Cooperative, No apparent distress HEENT: Atraumatic, PERRLA, EOMI Oral: Dry Mucosa Neck: Supple, No JVD Lungs: Clear to auscultation, Normal air movement, No rhonchi, No wheeze, No rales, Diminished Cardiovascular: Regular rate, Regular Rhythm, Normal S1, Normal S2, No murmurs Abdomen: Soft, Non Tender, Non-Distended, No Hepato-splenomegaly Extremities: No edema, Capillary Refill Less than 3 Seconds Skin: No rashes, No breakdown Neurological: Neuro grossly intact, Sensory exam intact to light touch and pain Psych/Mental Status: Normal affect, appropriate Laboratory Results 07/31/19 12:38: POC Glucose 108 07/31/19 16:46: POC Glucose 236 H 07/31/19 22:12: POC Glucose 170 H 08/01/19 06:37: POC Glucose 214 H Current Medications Acetaminophen (Tylenol) 650 mg PO Q6H PRN PRN PRN Reason: Pain or Fever Last Admin: 07/31/19 12:47 Dose: 650 mg Documented by: Chlordiazepoxide (Librium) 25 mg PO Q12H GERBER; Taper Stop: 08/01/19 15:44 Last Admin: 08/01/19 02:45 Dose: 25 mg Documented by: Dextrose (D50w Syringe) 0 gm IV X1 PRN; Protocol PRN Reason: Hypoglycemia Dicyclomine HCl (Bentyl) 20 mg PO Q6H PRN PRN PRN Reason: abdominal discomfort Fluoxetine HCl (Prozac) 20 mg PO DAILY GERBER Last Admin: 07/31/19 09:41 Dose: 20 mg Documented by: Glucagon () 1 mg IM .X1 PRN PRN Reason: Hypoglycemia Hydroxyzine Pamoate (Vistaril Pamoate Capsule) 50 mg PO Q6H PRN PRN PRN Reason: Mild Anxiety (score 1/3) Insulin Human Lispro (Humalog Kwikpen (Bkc)) 0 unit SC [facility]; Protocol Last Admin: 08/01/19 06:38 Dose: 4 units Documented by: Lorazepam (Ativan) 2 mg PO Q2H PRN PRN; Protocol PRN Reason: CIWA score > 8 but <15 Lorazepam (Ativan) 2 mg PO UD PRN; Protocol PRN Reason: CIWA score >/=15. Lorazepam (Ativan) 2 mg IV Q2H PRN PRN; Protocol PRN Reason: CIWA score > 8 but <15 Lorazepam (Ativan) 2 mg IV UD PRN; Protocol PRN Reason: CIWA score >/=15. Met[facility] (Gluc[facility]) [facility] Last Admin: 07/31/19 16:47 Dose: 500 mg Documented by: Methocarbamol (Methocarbamol) 750 mg PO Q6H PRN PRN PRN Reason: Muscle Aches Multivitamins (Multivitamin) [facility] Last Admin: 07/31/19 09:41 Dose: 1 tablet Documented by: Ondansetron HCl (Zofran) 4 mg IV Q8H PRN PRN PRN Reason: NAUSEA/VOMITING Sodium Chloride () 10 - 40 ml IV UD PRN PRN Reason: SALINE FLUSH Last Admin: 07/31/19 22:13 Dose: 10 ml Documented by: Discharge Activity: Return to Normal Activity Call your doctor if you observe: Fever of 101 or Higher, Shortness of breath, Dizziness, Fainting spells, Swelling in the ankles, Chest pain, Increased palpitations (irregular heartbeat) Home Medications: Medications to take at Discharge Fluoxetine [Prozac] 20 mg PO DAILY 07/29/19 Folic Acid 0.8 mg PO DAILY@0800 07/29/19 Metformin HCl [Metformin HCl ER] 1,500 mg PO QHS 07/29/19 Naltrexone HCl 50 mg PO DAILY 07/29/19 Primary Care Physician: Care Physician,No Primary [Primary Care Provider] - Please follow up with your Primary Care Physician in: 3-5 days Please Follow Up With: Alcohol Rehab When: CHUCK Disposition: Home Minutes spent on discharge:: 20 Patient Condition:: Stable Medical Necessity - Tobacco Use Smoking Status: Current every day smoker Tobacco Use: Non-smoker Meaningful Use Info Meaningful Use Diagnoses (Choose all that apply): None applicable Code Visit Inpatient E&M: 77308 Disch Hosp
[2019-08-01] MEDS: metFORMIN HCl 500 MG Tablet PO (09:16)
[2019-08-01] MEDS: Folic Acid 1 MG Tablet PO (09:16)
[2019-08-01] MEDS: Multivitamins,Therapeutic Tablet 1 TABLET PO (09:16)
[2019-08-01] MEDS: FLUoxetine 20 MG Capsule PO (09:16)
[2019-08-01] MEDS: Thiamine Hydrochloride 100 MG Tablet PO (09:16)
== END 2019-08-01 11:49 | disposition home or self-care (01) | DRG 775 ==
LOC: ED 10:41 → PCU 12:58
PROVIDERS: Admitting Provider Student in an Organized Health Care Education/Training Program; Emergency Provider Emergency Medicine; Referring Provider Student in an Organized Health Care Education/Training Program; Visit Provider Family Medicine
DX: F10.239 Alcohol dependence with withdrawal, unspecified (principal); E11.9 Type 2 diabetes mellitus without complications; Z79.84 Long term (current) use of oral hypoglycemic drugs; Y90.0 Blood alcohol level of less than 20 mg/100 ml; G40.89 Other seizures; D69.59 Other secondary thrombocytopenia; F32.9 Major depressive disorder, single episode, unspecified; R79.89 Other specified abnormal findings of blood chemistry; F41.1 Generalized anxiety disorder; F43.0 Acute stress reaction; F17.200 Nicotine dependence, unspecified, uncomplicated
CPT/HCPCS: 36415; 80048; 80076; 80307; 80320; 82962; 83735; 85025; 99283; 99285; A4216; G0480